=== PATIENT | male | born 1950 | race Caucasian/White ===

== ENCOUNTER → 2020-07-13 13:11 | Outpatient (CLI) | payer OTHER, SELFPAY ==
[2020-07-13 15:34] LABS: COVID19 -Nasal RAPID Negative (Negative)
== END ==
PROVIDERS: Visit Provider Physician Assistant
DX: Z20.828 Contact with and (suspected) exposure to other viral communicable diseases (principal)
CPT/HCPCS: 87635

== ENCOUNTER 2020-07-15 06:01 | Inpatient (IN) | payer OTHER, SELFPAY ==
[2020-07-08 14:00] VITALS: BMI 44.8
[2020-07-15] VITALS (14 sets, daily range): BP systolic 99–158; BP diastolic 7–76; PULSE 62–87; RESP 9–18; TEMP 35.9–36.9; O2SAT 93–98; BMI 43.4
--- NOTE | 2020-07-15 07:41 | DI.RAD.S_ITS ---
PROCEDURE: XR SHOULDER LT 1V INDICATIONS: post op total shoulder TECHNIQUE: Single frontal view of the shoulder were acquired. COMPARISON: None. FINDINGS: Bones: No fractures or dislocations. No suspicious bony lesions. Visualized ribs appear intact. Soft tissues: No suspicious soft tissue calcifications. IMPRESSION: Normal alignment after left proximal humeral arthroplasty. Dictated by: Ignacio Escobar M.D. on 07/15/2020 at 11:13 Approved by: Ignacio Escobar M.D. on 07/15/2020 at 11:13
--- NOTE | 2020-07-15 07:42 | PM.PREOP ---
Pre-operative Note COVID-19 COVID-19 status: Negative Result date/Date tested (Pos, Neg/Pending): 07/13/20 Interval Note History & Physical reviewed/Exam performed by Physician: Yes Changes to H&P: No
[2020-07-15] MEDS: LACTATED RINGERS 1,000 ML 42 ML IV ×2 (07:43→09:57)
[2020-07-15] MEDS: ACETAMINOPHEN 325 MG TABLET 975 MG PO (07:44)
--- NOTE | 2020-07-15 08:03 | SUR.PREOP ---
Orders unable to be activated, those needed to know informed. Block start time 0748. Monitoring initiated and maintained throughout procedure. Oxygen and medications given per anesthesiologist instructions. Patient remained stable throughout procedure, no adverse reactions noted. Block end time 08, pt then transported to OR in stable condition.].
[2020-07-15] MEDS: CEFAZOLIN VIAL 3 GM in SODIUM CHLORIDE 0.9% 100 ML IV (08:05)
--- NOTE | 2020-07-15 08:27 | PM.PROC.1 ---
Procedures Date/Time Date of procedure: 07/15/20 Time of procedure: 07:50 General Procedure description: Ultrasound guided interscalene brachial plexus nerve block for post op pain control after left total shoulder arthroplasty by Dr. Merrill. Risk and benefits of procedure discussed with patient. ASA monitoring applied to patient. O2 given via nasal cannula. 1 mg Versed and 50 mcg fentanyl given for procedural sedation. Skin site was prepped with chlorhexidine and allowed to fully dry. Sterile gloves, mask, hat and probe cover were used to maintain sterility. 2% lidocaine and 30ga needle was used to make a small skin wheal at needle insertion site. Under ultrasound guidance, a 21ga 50mm Pajunk needle was directed into the interscalene groove (middle/anterior scalenes) near the brachial plexus. Patient reported no parasthesias. After negative aspiration, 20 mL 0.5% ropivicaine and 10mg dexamethasone were injected around brachial plexus. Patient tolerated procedure well.
--- NOTE | 2020-07-15 08:44 | SUR.OPER ---
Beach chair with Schlein shoulder positioner. Lower body on padded OR bed. Head in foam padded head cradle, secured with straps. Non-operative arm secured <90 degrees abduction. Pillow under knees. Safety belt at thigh. Cloth tape over blanket over lower legs.
[2020-07-15] MEDS: BUPIVACAINE 0.5% W/ EPI (PF) 30 ML VIAL INJ (08:54)
[2020-07-15] MEDS: TRANEXAMIC ACID 1,000 MG VIAL 2000 MG INJ ×2 (08:54→11:00)
[2020-07-15] MEDS: THROMBIN (RECOMBINANT) 5,000 UNIT VIAL 5000 UNIT TOP (08:55)
--- NOTE | 2020-07-15 10:49 | SUR.PHASEI ---
Pt arrived, 02 nasal cannula added. Denied pain, tolerated ice ships. report called to MIRA Macias and pt transported up on room air to room 220.
--- NOTE | 2020-07-15 11:01 | PM.OP.1 ---
Operative Date/Time/Diagnoses Date of procedure: 07/15/20 Time of procedure: 11:02 Pre-op diagnosis: Left shoulder osteoarthritis Post-op diagnosis: same Procedure & Clinicians Procedure: Left total shoulder replacement Same procedure as scheduled: Yes Indications: The patient has had progressively worsening left shoulder pain with radiographic changes consistent with arthritis. Non-operative management has failed and the patient has requested total shoulder replacement. The risks, benefits and alternatives to surgery were discussed with the patient prior to proceeding. Risks discussed included, but were not limited to, failure to relieve pain, stiffness, infection, nerve damage, deep venous thrombosis, pulmonary embolism, stroke, coma, heart attack, permanent paralysis and , as well as the potential need for eventual revision of the prosthetic. Surgeon: Roberto Merrill Conveyor Line Battery Charger: Tamy Grimes Click Yes if Unassisted: Yes Anesthesia Type: General, Peripheral nerve block and Local Operative Notes Findings: Significant osteoarthritic change of the left shoulder. Closure Type: primary Specimen(s): none sent Prosthetic devices, grafts, tissues, transplants, or devices: Implants used in this procedure were manufactured by the [employer] and included a stem list total shoulder system with a size 324 mm canal sparing stem with a humeral neck and a 50 mm x 20 mm humeral head and a size 50 all polyethylene E plus pegged glenoid. In addition an [employer] Speed Bridge anchor system was used. Applied: implant(s) Estimated Blood Loss (mL): 100 Blood products transfused: none Procedure in detail: The patient was seen in the pre-operative area, where the patient identified the left shoulder as the operative site and this was marked with my initials. The patient received pre-operative antibiotics, underwent an interscalene block, and was taken to the operating room and placed on the operative table in the supine position. After satisfactory anesthesia, a full ?time out? was performed. The patient was repositioned in the ?beach chair? position using a dedicated positioner. All pressure points were well padded, and the knees were slightly bent to prevent tension on the sciatic nerves. The left arm was prepared from the fingers to the base of the neck with ChloroPrep in the usual fashion and draped through sterile drapes. An approximately 15 cm incision was created, starting at the clavicle above the coracoid process and extended towards the deltoid insertion. The deltopectoral interval was used to access the shoulder. The cephalic vein was taken medially. A self retaining retractor was placed. The upper centimeter of the pectoralis major tendon was released. The ?three sisters? were identified and cauterized. The axillary nerve was palpated and protected throughout the case. The biceps was released from its groove and tenodesed over the top of the pectoralis major tendon. The subscapularis was released from the lesser tuberosity with a subscapularis peel and tagged for later repair. The shoulder was dislocated and a cutting guide was used for the proximal humeral osteotomy in 30 degrees of retroversion. A humeral head guide was used to place the guide pin in the center of the proximal humerus after removal of the osteophytes. The cannulated calcar planer was used followed by the neck Reamer and the central cylindrical Reamer. It appeared that a size 3 would fit and this was used to score the proximal humerus and then a size 2 broach was used and left in place. A proximal humeral protector was applied. We then removed the self-retaining retractor and placed retractors to access the glenoid. The subscapularis was released with a ?360 degree release? with care being taken to protect the axillary nerve with the inferior portion of this procedure. The remnant of labrum and biceps stump were removed. The appropriate size reamer was chosen with the glenoid sizer, and the guide pin placed. The glenoid was appropriately reamed. The guide for the peripheral holes was used and the center hole enlarged. The trial glenoid was placed with good stability. We then cemented the final implant into place after irrigating the peg holes and drying them with thrombin-soaked Gelfoam. We returned our attention to the humerus, a trial humeral head was applied and a trial reduction performed. Stability was checked with 50% posterior translation with spontaneous reduction, 45? external rotation at the side with the subscapularis in the repaired position and internal rotation to 70?. This was felt to be satisfactory and the appropriate implants were opened. The canal sparing stem was impacted into the humerus. The humeral head was applied when the stem was still slightly proud and impacted to both seat the head and fully seat the stem. The joint was relocated one final time. The joint was irrigated and the subscapularis repaired using the speed bridge system with 2 anchors along the humeral neck and 2 in the bicipital groove. The top of the subscapularis was closed to the leading edge of the supraspinatus with a figure of 8 #2 TiCron to close the rotator interval. A deep drain was placed and brought out supero-laterally. The deltopectoral interval was closed with interrupted 0 Vicryl. The subcutaneous layer was closed with 3-0 Vicryl, and the skin with a running 3-0 V-Lock suture and Dermabond. An Aquacel Ag dressing was applied, the patient?s arm was placed in a sling, and the patient was taken to recovery having tolerated the procedure well. Complications: none Post-operative Condition: stable Disposition: PACU Plan for aftercare: The patient will be maintained on a standard total shoulder replacement protocol with passive range of motion limited to 90 degrees forward flexion, 0 degrees external rotation at the side, 0 degrees abduction and internal rotation to the body. The patient will receive aspirin and sequential compression devices for DVT prophylaxis. The patient will be discharged home when safe for the home environment, likely tomorrow.
--- NOTE | 2020-07-15 11:03 | SUR.PHASEI ---
Pt transported up to room on room air. Pt stayed on room air till RN could get green plastic piece for 02 set up. Pt left in stable condition.
[2020-07-15] MEDS: LACTATED RINGERS 1,000 ML 100 ML IV ×2 (11:16→21:37)
--- NOTE | 2020-07-15 14:00 | PT.IIE ---
Current Diagnoses Primary osteoarthritis, left shoulder (07/15/20) Surgery Performed Operation Date: 07/15/20 07:45 Actual Procedures p Total Shoulder Arthroplasty(Left) - Roberto Merrill MD Surgical History (Last Updated 07/08/20 @ 14:15 by Lorenza Dubois, RN) Hx of arthroscopy of left knee Medical History (Last Updated 07/08/20 @ 14:15 by Lorenza Dubois, RN) Edema Familial tremor HTN (hypertension) Kidney stones Neuropathy MICHAEL on CPAP Osteoarthritis Pre-diabetes Spinal stenosis Vitreous detachment of left eye Physical Therapy Inpatient Evaluation/Re-Eval M1 PT/OT-IP Prior Functional Status Start: 07/15/20 11:26 Freq: NEEDED Status: Active Protocol: Document 07/15/20 13:56 AW (Rec: 07/15/20 17:52 AW [id number]) Medical Review Prior Functional Status Medical History Reviewed Yes Communication Pt is an effective verbal communicator. Mobility and Gait Independent without AD and without meaningful limit. Pt did fall one year ago, injuring his left shoulder. He reports one additional fall on ice in the past year. Activities of Daily Living and IADL's IND Social History Household Members spouse,family Living Arrangements House Number of Floors (Floors) Two Floors Number of Stairs To Enter/Railing? 1 step up into the house from the garage. entry level electrician has kitchen, living room, dining room. Pt climbs 13 steps with right rail ascending to bedroom level. 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 He has taken six weeks off after surgery. He lives with his , Margarita, who will be home and available to assist at discharge. Pt states his son, Valeriy, also lives at home with mental disabilities . M2 PT-IP Current Condition Start: 07/15/20 11:26 Freq: NEEDED Status: Active Protocol: Document 07/15/20 13:56 AW (Rec: 07/15/20 17:52 AW [id number]) Physical Therapy Current Condition Current Condition Evaluation Date 07/15/20 Treatment Diagnosis L TSA; decreased independence with ADL's Onset Date 07/15/20 Precautions Shoulder Precautions Sling,PROM,Internal Rotation to Body,No External Rotation, No Abduction,Forward Flexion to 90 degrees,Pendulums Brace soft sling LUE M3 PT-IP Subjective Start: 07/15/20 11:26 Freq: NEEDED Status: Active Protocol: Document 07/15/20 13:56 AW (Rec: 07/15/20 17:52 AW [id number]) Subjective Physical Therapy Visit Type Type Initial Evaluation Visit Start Time 13:27 Visit Stop Time 13:56 Total Visit Minutes 29 Number of PARCEL CONTRACTOR Visits 0 Physical Therapy Visit Comments Patient Comments Pt is willing to participate with PT Patient Goals Return home tomorrow Therapy Pain Assessment Pain When Pain Assessed During Mobility Pain Present Pain Present Denied Pain M4 PT-IP Mobility and Gait Start: 07/15/20 11:26 Freq: NEEDED Status: Active Protocol: Document 07/15/20 13:56 AW (Rec: 07/15/20 17:52 AW [id number]) PT-Bed Mobility Assessment Supine to Sit Supine to Sit Minimal Assistance,1 Person Assistance Scooting Scooting to Edge of Bed Contact Guard Assistance PT-Transfer Assessment Sit to and From Stand Sit to and from Stand Contact Guard Assistance Equipment Transfer Assistive Device Gait Belt Orthotic/Prosthetic Devices or Brace: Yes Transfers Transfer Destination Chair,Toilet Transfer Technique Stand Step Pivot Transfer Ability Level of Assist Contact Guard Assistance Comments Mobility Comments Pt was reclined in the bed as PT arrived. He denied pain. BP was 130/64 HR 77 Spo2 97% on room air. With HOB flat, pt required min 1 PA to complete supine to sit and CGA for scooting to EOB. He stood from the bed in lowest position CGA and ambulated to the sink CGA. Pt was instructed in proper sling fitting using the mirror for visual feedback. Pt understood and was able to teach back regarding sling adjustments. Pt then requested to use the toilet. He ambulated to the toilet CGA and stood to void SBA. He ambulated to the sink for handwashing and then transferred to the chair CGA and cues to reach back with right hand for safe transfer. Pt was positioned on the chair with call light and all needs in reach. Gait Assessment Gait Gait Assistance Required: Contact Guard Assist Distance (Feet) 15 Assistive Devices Assistive Device Gait Belt Orthotic/Prosthetic Devices or Brace: Yes Gait Deviations General Gait Pattern Decreased Stride Length, Decreased Feet Clearance, Flexed Trunk,Wide Based Gait Factors Limiting Gait Function Factors Limiting Gait Function Decreased Activity Tolerance, Decreased Sensation,Decreased Strength,Limited Range of Motion Comments Gait Comments See mobility comments for details. Stair Climbing Assessment Comments Stair Climbing Comments Not assessed. PT-Balance Assessment Sitting Balance and Reactions Static Sitting Balance Ability Good Dynamic Sitting Balance Ability Good Standing Balance and Reactions Static Standing Balance Ability Good Dynamic Standing Balance Ability Good Device Used no AD M5 PT-IP Objective Assessments Start: 07/15/20 11:26 Freq: NEEDED Status: Active Protocol: Document 07/15/20 13:56 AW (Rec: 07/15/20 17:52 AW [id number]) Orientation Orientation/Cognition Level of Alertness Alert Orientation Name,Day of Week,Place, Situation Language Function Ability No Deficits Noted Safety Awareness Understands Safety Issues Memory Description No Deficits Noted Gross Range of Motion Upper Extremity ROM Assessment Left Impaired Strength Upper Extremity Strength Assessment Left Impaired Comments Strength Comments RUE grossly 4+/5 Sensation Assessment Sensation Gross Sensation Left UE Impaired Light Touch Impaired Sensation Description Numbness M6 PT-IP Treatment Start: 07/15/20 11:26 Freq: NEEDED Status: Active Protocol: Document 07/15/20 13:56 AW (Rec: 07/15/20 17:52 AW [id number]) Physical Therapy Treatment Education Education Provided Precautions,Post-Op Packet, Safety Brace Education [place],Patient Other Treatments Other Treatment Performed Provided education on ADL management during recovery and left pt with hand out describing same. M7 PT-IP Assessment and Plan Start: 07/15/20 11:26 Freq: NEEDED Status: Active Protocol: Document 07/15/20 13:56 AW (Rec: 07/15/20 17:52 [id number]) PT Summary Assessment and Plan Potential Rehabilitation Potential Good Status of Condition at Evaluation Evolving Summary Impairments Pain,ROM,Strength,Balance, Sensation,Bed Mobility, Transfers,Gait,Activity Tolerance Assessment Summary Christian is a 69 yo man seen for PT evaluation on POD0 following L TSA. He is left handed and independent in all regards at baseline. On evaluation, pt required min assist for bed mobility and CGA for transfers and ambulation without AD. He will need to clear stairs prior to discharge but PT anticipates he will be safe to go home with assist once medically cleared. Goals Bed Mobility Goal Standby Assistance Transfer Goal Standby Assistance Gait Goal Standby Assistance Gait Distance 200 Other Goals - up/down 13 steps wtih R rail ascending SBA Days to Meet Goals 3 Frequency of Treatment Frequency Of Treatment Twice a Day Treatment Plan Physical Therapy Treatment Plan Bed Mobility Training,Transfer Training,Gait Training, Therapeutic Exercise,Balance Retraining,Post Op Education, Discharge Planning,Hot or Cold Pack Other Recommendations and Next Treatment review precautions and PROM/ Focus pendulums; assess safety on stairs. Recommendations To Nursing Amount of Assist Needed Standby Assistance,1 Person Assist Discharge Recommendations PT Discharge Recommendations Home with Assistance, Outpatient PT Transportation Needs at Discharge Private Vehicle
--- NOTE | 2020-07-15 14:11 | PC.ADMIT ---
[id number] Admission Note: Safe hand off from [facility] PACU. Patient arrived on the floor at 1100. VSS, patient was on 1 liter of O2 at 97% and now is on room air at 93%. Patient has an aquacel bandage on his left shoulder that is CDI. LR@100cc/hr. NO pain, no nausea, tolerated lunch without any issues. Patient was educated about the use of his call light, it is within reach, and the bed is low and locked. Patient has home CPAP available for use. The patient,Kayode Obando,69 y/o, was given written information regarding hospital policies, unit procedures and contact persons. Patient's smoking status: Never smoker. Vital Signs - 8 hr 07/15/20 06:45 07/15/20 10:26 07/15/20 10:30 Temperature 98.4 F 98.4 F Pulse Rate 62 77 77 Respiratory Rate 16 9 L 10 L Blood Pressure 145/72 H 112/58 L 99/7 L Pulse Oximetry 98 94 95 07/15/20 10:34 07/15/20 10:48 07/15/20 11:01 Temperature 97.9 F 96.7 F L Pulse Rate 73 67 68 Respiratory Rate 14 16 15 Blood Pressure 125/66 127/60 126/60 Pulse Oximetry 96 95 93 07/15/20 11:29 07/15/20 12:00 07/15/20 12:22 Temperature 96.7 F L 96.8 F L Pulse Rate 65 67 Respiratory Rate 15 16 Blood Pressure 158/67 H 142/63 H Pulse Oximetry 96 96 96 07/15/20 13:07 Temperature 97.2 F L Pulse Rate 70 Respiratory Rate 16 Blood Pressure 130/61 Pulse Oximetry 97
[2020-07-15] MEDS: ACETAMINOPHEN 325 MG TABLET 650 MG PO ×2 (16:42→21:13)
[2020-07-15] MEDS: MELOXICAM 7.5 MG TABLET 15 MG PO (21:13)
[2020-07-15] MEDS: ASPIRIN EC 81 MG TABLET PO (21:13)
[2020-07-15] MEDS: LOSARTAN 50 MG TABLET PO (21:13)
[2020-07-15] MEDS: DOCUSATE 100 MG CAPSULE PO (21:13)
[2020-07-16] MEDS: OXYCODONE IR 5 MG TABLET PO ×2 (03:27→08:11)
[2020-07-16 05:08] LABS: Hematocrit 36.7 % (41-53); Hemoglobin 12.1 g/dL (13.5-17.5)
[2020-07-16 05:20] VITALS: BP 125/67; PULSE 76; RESP 16; TEMP 36.3; O2SAT 96
[2020-07-16] MEDS: SODIUM CHLORIDE 0.9% FLUSH 10 ML IV (06:10)
--- NOTE | 2020-07-16 07:38 | PM.DS.1 ---
History of Present Illness History of Present Illness Date Patient Seen: 07/16/20 Time Patient Seen: 07:38 Chief complaint: Left Total Shoulder Arthroplasty Narrative: The history and physical is contained in the chart in a previously completed note, please refer to that note for this information. Discharge Providers Provider Date of admission: 07/15/20 06:01 Discharge Date: 07/16/20 Primary care physician: Kaleb Rodriguez MD Consults: 07/15/20 11:01 Consult to Discharge Planning Routine Comment: Consult to Physical Therapy Evaluate & Treat Comment: Physician Instructions: Pendulums. Can do 90 FF, 0 ER, 0 ABD, IR to body Consult to Respiratory Therapy Evaluate & Treat Comment: Physician Instructions: Evaluate and treat Discharge provider: Roberto Merrill MD Summary Hospital Course Discharge Diagnosis: 1. Left shoulder osteoarthritis 2. Post hemorrhagic anemia Hospital Course: The patient was admitted to the hospital and taken directly to the operating room on July 15, 2020. He underwent a left total shoulder replacement without difficulty. On postoperative day 1 he had a mild post hemorrhagic anemia. This was not severe enough to require treatment. He was comfortable after the block had worn off and was independent ambulating to the bathroom. Status at Discharge Cognitive/behavioral status at discharge: oriented Functional status at discharge: independent ambulation Overall status at discharge: patient is progressing back to baseline Time Spent with Patient Time spent: Less than 30 minutes Exam Vital Signs (past 8 hours): - 07/16/20 05:20 Temperature 97.3 F L Pulse Rate 76 Respiratory Rate 16 Blood Pressure 125/67 Pulse Oximetry 96 Oxygen Delivery Method Nasal Cannula Oxygen Flow Rate 2 Narrative Exam Narrative: Left shoulder dressing is intact with no drainage on the bandage. Light touch is intact in the radial, ulnar, median, muscular cutaneous and axillary nerve distribution. He can extend his thumb, abduct his thumb, abduct his fingers and can fire his biceps and deltoid. Objective Labs Result Diagrams: 07/16/20 04:47 Labs: Laboratory Results - last 24 hr 07/16/20 04:47 Hgb 12.1 L Hct 36.7 L PFSH Medical History (Updated 07/08/20 @ 14:15 by Lorenza Dubois RN) Edema Familial tremor HTN (hypertension) Kidney stones Neuropathy MICHAEL on CPAP Osteoarthritis Pre-diabetes Spinal stenosis Vitreous detachment of left eye Surgical History (Updated 07/08/20 @ 14:15 by Lorenza Dubois RN) Hx of arthroscopy of left knee Social History household members: spouse and family Smoking Status: Never smoker alcohol intake: never Discharge Assessment & Plan Assessment and Plan Assessment: Stable postoperative day 1 status post left total shoulder replacement. He has a mild, asymptomatic post hemorrhagic anemia. He is independent ambulating. Plan of Treatment: Discharged home today with follow-up at my office in 10-14 days. Prescriptions for oxycodone and Vistaril have been provided. He has been instructed to use Mobic and Tylenol for pain control as well. He has been instructed in the use of low-dose aspirin for DVT prophylaxis. Discharge Plan Discharge Plan Patient Disposition: Home Discharge orders & Medications Prescriptions: New acetaminophen 325 mg Tablet 650 mg PO TID 30 Days Qty: 180 RF: 0 aspirin 81 mg Tablet,Delayed Release (Dr/Ec) 81 mg PO BID 42 Days Qty: 84 RF: 0 oxycodone 5 mg Tablet 5 mg PO Q4H PRN (Reason: Pain, Moderate (4-6)) Qty: 40 RF: 0 hydroxyzine pamoate 25 mg Capsule 25 mg PO Q6HR PRN (Reason: Nausea) Qty: 30 RF: 0 Continued losartan 50 mg Tablet 50 mg PO BEDTIME RF: 0 propranolol 80 mg Tablet 80 mg PO QAM RF: 0 meloxicam 15 mg Tablet 15 mg PO BEDTIME RF: 0 hydrochlorothiazide 25 mg Tablet 25 mg PO DAILY RF: 0 multivitamin Capsule 1 cap PO DAILY RF: 0 Follow up/Referrals: Kaleb Rodriguez MD [Primary Care Provider] - Roberto Merrill MD [Physician] - 2 Weeks Discharge Health Status Multidrug resistant organism: No MDRO Diet/Activity/Treatments Diet: Diet as Tolerated and Regular Activity: You may use your left arm in front of your body below shoulder level. Lift no more than 1-2 lb with your left arm. Cold/Heat Therapy: Apply ice to the left shoulder for 15 minutes every hour as needed for pain control. Skin/Wound/Dressing Care Report to your healthcare provider any signs of infection, such as:: chills, fever, night sweats, increased pain, unusual drainage and unusual redness Dressing: Leave the dressing in place until your postoperative follow-up. You may shower with the dressing in place. If the central strip of the dressing becomes saturated with either water or blood, please call the office to have it evaluated. Visit Report/Discharge Packet Instructions: DI for Prescription Opioid Use, DI for Shoulder Replacement Stand Alone Forms: Surgery Discharge Discharge Data Primary Care Provider: Kaleb Rodriguez VTE Deep Vein Thrombosis/Pulmonary Embolism Present on Admission: No
[2020-07-16] MEDS: ACETAMINOPHEN 325 MG TABLET 650 MG PO (08:10)
[2020-07-16] MEDS: DOCUSATE 100 MG CAPSULE PO (08:10)
[2020-07-16] MEDS: ASPIRIN EC 81 MG TABLET PO (08:11)
[2020-07-16] MEDS: hydroCHLOROthiazide 25 MG TABLET PO (08:11)
[2020-07-16] MEDS: PROPRANOLOL 40 MG TABLET 80 MG PO (08:11)
[2020-07-16] MEDS: MULTIVITAMIN 1 TABLET 1 TAB PO (08:11)
--- NOTE | 2020-07-16 09:11 | PT.IPTN ---
Current Diagnoses Primary osteoarthritis, left shoulder (07/15/20) Surgery Performed Operation Date: 07/15/20 07:45 Actual Procedures p Total Shoulder Arthroplasty(Left) - Roberto Merrill MD Physical Therapy Treatment Note M2 PT-IP Current Condition Start: 07/15/20 11:26 Freq: NEEDED Status: Discharge Protocol: Document 07/15/20 13:56 AW (Rec: 07/15/20 17:52 AW [id number]) Physical Therapy Current Condition Current Condition Evaluation Date 07/15/20 Treatment Diagnosis L TSA; decreased independence with ADL's Onset Date 07/15/20 Precautions Shoulder Precautions Sling,PROM,Internal Rotation to Body,No External Rotation, No Abduction,Forward Flexion to 90 degrees,Pendulums Brace soft sling LUE M3 PT-IP Subjective Start: 07/15/20 11:26 Freq: NEEDED Status: Discharge Protocol: Document 07/16/20 08:52 CLB (Rec: 07/16/20 10:49 CLB [email or web address]) Subjective Physical Therapy Visit Type Type Treatment Note Visit Start Time 08:52 Visit Stop Time 09:11 Total Visit Minutes 19 Number of WELD ENGINEER Visits 1 Physical Therapy Visit Comments Patient Comments Pt is willing to participate with PT Therapy Pain Assessment Pain When Pain Assessed During Mobility Pain Present Pain Present Pain Reported Location l shoulder Intensity 2 Scale Used Numeric (0 - 10) M4 PT-IP Mobility and Gait Start: 07/15/20 11:26 Freq: NEEDED Status: Discharge Protocol: Document 07/16/20 08:52 CLB (Rec: 07/16/20 10:49 CLB [email or web address]) PT-Bed Mobility Assessment Supine to Sit Supine to Sit Standby Assistance Scooting Scooting to Edge of Bed Standby Assistance PT-Transfer Assessment Sit to and From Stand Sit to and from Stand Contact Guard Assistance Equipment Transfer Assistive Device Gait Belt Orthotic/Prosthetic Devices or Brace: Yes Transfers Transfer Destination Chair Transfer Technique Stand Step Pivot Transfer Ability Level of Assist Standby Assistance Comments Mobility Comments Pt required SBA for bed mobility, once on EOB pt required assist donning shoes, pt then stood SBA, pt ambulated in fine ~100ft w/GB/ SBA to stairwell. Pt climbed 12 steps with rail SBA. Pt then ambulated ~200ft more SBA . Pt ambulates with step thru gait pattern steadily w/o LOB. Pt returned to room sitting in chair SBA. Pt removed sling performing elbow, wrist and finger flx/ext. Pt then stood SBA and with right hand on foot board perform pendulum. Pt then donned sling with assist getting strap behind his head then pt was able to secure velcro strap on his own . Left pt in chair with all needs within reach. Informed RN of pt mobility. Gait Assessment Gait Gait Assistance Required: Standby Assistance Distance (Feet) 300 Assistive Devices Assistive Device Gait Belt Orthotic/Prosthetic Devices or Brace: Yes Gait Deviations General Gait Pattern Decreased Stride Length, Decreased Feet Clearance,Wide Based Gait Factors Limiting Gait Function Factors Limiting Gait Function Decreased Activity Tolerance, Decreased Sensation,Decreased Strength,Limited Range of Motion Comments Gait Comments See mobility comments for details. Stair Climbing Assessment Evaluation Level of Assist On Stairs Standby Assistance Devices Stair Climbing Assistive Devices Right Railing Technique/Endurance Stair Climbing Direction Ascend and Descend Stair Climbing Technique Step Over Step,Step to Step Number of Steps Climbed 12 Stair Climbing Set # Repetitions (reps) 1 Comments Stair Climbing Comments Pt able to climb stairs SBA using right rail with step to down and step over up stairs. M5 PT-IP Objective Assessments Start: 07/15/20 11:26 Freq: NEEDED Status: Discharge Protocol: Document 07/15/20 13:56 AW (Rec: 07/15/20 17:52 AW [id number]) Orientation Orientation/Cognition Level of Alertness Alert Orientation Name,Day of Week,Place, Situation Language Function Ability No Deficits Noted Safety Awareness Understands Safety Issues Memory Description No Deficits Noted Gross Range of Motion Upper Extremity ROM Assessment Left Impaired Strength Upper Extremity Strength Assessment Left Impaired Comments Strength Comments RUE grossly 4+/5 Sensation Assessment Sensation Gross Sensation Left UE Impaired Light Touch Impaired Sensation Description Numbness M6 PT-IP Treatment Start: 07/15/20 11:26 Freq: NEEDED Status: Discharge Protocol: Document 07/16/20 08:52 CLB (Rec: 07/16/20 10:49 CLB [email or web address]) Physical Therapy Treatment Exercises Exercises Shoulder Pendulums,Elbow Flexion/Extension,Wrist ROM, Hand ROM Education Education Provided Precautions,Post-Op Packet, Safety Brace Education Donning,[place],Patient M7 PT-IP Assessment and Plan Start: 07/15/20 11:26 Freq: NEEDED Status: Discharge Protocol: Document 07/16/20 08:52 CLB (Rec: 07/16/20 10:49 CLB [email or web address]) PT Summary Assessment and Plan Potential Rehabilitation Potential Good Status of Condition at Evaluation Evolving Summary Impairments Pain,ROM,Strength,Balance, Sensation,Bed Mobility, Transfers,Gait,Activity Tolerance Progress Towards Goals Safe For Discharge Assessment Summary Pt is SBA for all mobility, pt requires assist with donning shoes and minimal assist with donning sling. Pt required SBA for gait ~300ft and climbing 12 stairs. Pt seems able to d/ c home with assist from his Margarita. Goals Bed Mobility Goal Standby Assistance Transfer Goal Standby Assistance Gait Goal Standby Assistance Gait Distance 200 Other Goals - up/down 13 steps wtih R rail ascending SBA Days to Meet Goals 3 Frequency of Treatment Frequency Of Treatment Twice a Day Treatment Plan Physical Therapy Treatment Plan Bed Mobility Training,Transfer Training,Gait Training, Therapeutic Exercise,Balance Retraining,Post Op Education, Discharge Planning,Hot or Cold Pack Recommendations To Nursing Amount of Assist Needed Standby Assistance,1 Person Assist Discharge Recommendations PT Discharge Recommendations Home with Assistance, Outpatient PT Transportation Needs at Discharge Private Vehicle
--- NOTE | 2020-07-16 14:03 | CM.DPC ---
DCP/Assessment: Reviewed chart. Patient is a 69yr old male admitted [facility] for elective left TSA performed on 07-15-20. PCP listed is Kaleb Rodriguez. Primary payor is 1)[employer]. Met with patient explained CM/SW role. Patient report that he is discharging home today without any d/c planning needs. P: Home LAYLA Blanc Discharge Planning/Care Management Advanced directive, confirm from FAMILY Start: 07/15/20 11:10 Freq: Q24H Status: Discharge Protocol: Document 07/15/20 11:10 KLP (Rec: 07/15/20 11:14 KLP [id number]) Advance Directive, confirm on record Time 11:14 Person contacted patient Copy received No CM Discharge Assessment Start: 07/16/20 13:59 Freq: Status: Discharge Protocol: Document 07/16/20 13:59 KJS (Rec: 07/16/20 14:03 KJS [id number]) Discharge Planning Assessment Assigned Welder Fitter Apprentice LAYLA Blanc Contact Information Margarita Obando (spouse) # Advance Directives? Yes Advance Directives on File No History Provided By Patient Prior Living Arrangements House Household Members spouse,family Type of transporation used prior to Drives own vehicle admit Independent with ADL's Yes Is patient alert and oriented? Yes Caregiver for Another No Barriers to Discharge No Discharge Plan Home Transportation Arrangement Spouse to provide transport. Referrals Initiated None needed Whiteboard Updated in Patient Room with Yes name and ext. # of Welder Fitter Apprentice Review Status In Process Next Review Type Continued Stay Review Pre-Anesthesia Assessment Start: 07/08/20 14:00 Freq: Status: Complete Protocol: Document 07/08/20 14:00 CAB (Rec: 07/08/20 14:36 CAB [id number]) Pre-Anesthesia Assessment Preferred Name Christian Patient Information Reviewed Via Phone Assessment Assessment Completed With Patient Diagnostic Results BMP/CMP,CBC,EKG Comment Outside labs/EKG scanned, COVID screen @ 07/13/20 Primary Care Provider Kaleb Rodriguez Seen Specialist in Last 12 Months Yes Specialist Seen Opthamologist/Reliner, Other Comment Neuro Primary Language Azeri Twitchell Operator Required No Height 170.18 cm Weight 129.727 kg Body Mass Index (BMI) 44.8 Hearing Ability Normal Visual Assist Glasses Dentition Type Teeth, Natural Present Barriers to Learning None Hx Anesthesia Reactions No Hx Family Anesthesia Reaction No Hx Malignant Hyperthermia No Hx Blood Transfusions No Anesthesia Review Requested No alcohol intake never Smoking Status Never smoker Substance Use Type does not use Pain Present Pain Reported Musculoskeletal Symptoms Joint Pain,Limited Range of Motion,Tremors History of Falling (Recent or History of No ) Patient is completely paralyzed or No completely immobile Mental Status Oriented to own ability Is patient on oxygen? No Does patient have RODRÍGUEZ/SOB No Hx Sleep Apnea Yes CPAP/BIPAP use prescribed and used routinely Will Bring CPAP/BIPAP DOS Yes Currently Taking a Beta Rere Yes: Propranolol for bilat hand tremors Can You Climb a Flight of Stairs Without Yes SOB Hx Chest Pain No Hx SOB No Hx Syncope or Dizziness No Anti-Coagulant Therapy No Has a Chemical Treatment Operator No Cardiac Testing No Hx Pacemaker/ICD No Pacemaker Rep Required? No Cardiac Clearance Received Not Applicable Diet Type At Home Regular dysphagia No Urinary Catheter Present No Hx Urinary Self Catheterization No Diabetes No: Pre-diabetic Hx Drug Resistant Organism No Presence of External or Internal Medical Yes: CPAP Devices Have you had any close contact with Yes: Exposure in March someone diagnosed with COVID-19? with co-worker, pt tested negative Marital Status Lives With spouse,family Prior Living Arrangements House Number of Floors (Floors) Two Floors Support System Child/Children,Spouse Does the Patient Have Assistance After Yes Surgery Patient Discharge Plan Description Return Home Comment Pt advised overnight length of stay per surgeon Feels Safe in Current Environment Yes Been Physically Hurt or Threatened By a No Person in Current Environment Do you have thoughts of harming yourself None or others? Are you currently considering suicide? No Do you have a plan to hurt yourself or No Plan others? Do You Have Any Spiritual Beliefs That No May Affect Your HC Choices? Do You Have Any Cultural Practices That No May Affect Your HC Choices? Comment Rastafari Who Can We Speak to About Patient's Care Family, friends Identifying Code for Release of Patient Declines to issue Information Health Care Proxy/Next of Kin Margarita Chavez () Health Care Proxy Emergency Contact Name Margarita Chavez () Emergency Contact Advance Directives? Yes Advance Directives on File No Requested Patient Bring Advanced Yes Directives DOS Power of Actuary Manager Yes Power of Actuary Manager Name Margarita Chavez () Power of Actuary Manager PAC Instructions Durable medical equipment, Medications to take/avoid, Nasal antibiotic,No ETOH/ petroleum product on skin DOS, NPO,Pre-surgical wash,Sensory aids,Sturdy shoes/comfortable clothes,Do not bring valuables and remove jewelry
== END 2020-07-16 10:10 | disposition home or self-care (01) | DRG 483 ==
PROVIDERS: Admitting Provider Orthopaedic Surgery; PCP Family Medicine; Referring Provider Orthopaedic Surgery; Visit Provider Orthopaedic Surgery
PROC: 0RRK0JZ Replacement of Left Shoulder Joint with Synthetic Substitute, Open Approach (ICD-10-PCS; CPT 23472; principal; 2020-07-15 07:45)
DX: M19.012 Primary osteoarthritis, left shoulder (principal); Z68.41 Body mass index [BMI] 40.0-44.9, adult; G47.33 Obstructive sleep apnea (adult) (pediatric); E66.9 Obesity, unspecified; I10 Essential (primary) hypertension; Z20.828 Contact with and (suspected) exposure to other viral communicable diseases
CPT/HCPCS: 36415; 64450; 73020; 85014; 85018; 87635; 94762; 97116; 97161; C1776; C9803; J0690; J1100; J2250; J2405; J2704; J3010

== ENCOUNTER → 2022-08-10 12:45 | Outpatient (CLI) | payer OTHER, SELFPAY ==
[2020-07-15 11:06] VITALS: BMI 43.4
[2022-08-10 13:56] LABS: COVID19 -Nasal RAPID Negative (Negative)
== END ==
PROVIDERS: PCP Family Medicine; Referring Provider Orthopaedic Surgery; Visit Provider Orthopaedic Surgery
DX: Z20.822 Contact with and (suspected) exposure to COVID-19 (principal)
CPT/HCPCS: 87635; C9803

== ENCOUNTER 2022-08-12 07:57 | Inpatient (IN) | payer OTHER, SELFPAY ==
[2020-07-15 11:06] VITALS: BMI 43.4
[2022-07-31 10:00] VITALS: BMI 46.5
[2022-08-12] VITALS (21 sets, daily range): BP systolic 110–166; BP diastolic 44–80; PULSE 70–100; RESP 10–26; TEMP 35.7–36.9; O2SAT 88–97; BMI 46.2
--- NOTE | 2022-08-12 07:29 | DI.RAD.S_ITS ---
PROCEDURE: XR SHOULDER RT MIN 2V INDICATIONS: Post op total shoulder TECHNIQUE: 1 views of the shoulder were acquired. [facility] SHOULDER 2+ VIEWS RIGHT, 02/03/2022, 15:29. FINDINGS: Bones: Postsurgical changes from right shoulder arthroplasty. Hardware appears intact. AC joint degenerative changes redemonstrated. Soft tissues: Soft tissue gas about the right shoulder consistent with recent postoperative status. IMPRESSION: Postsurgical changes from right shoulder arthroplasty. No definite unexpected findings identified. Dictated by: Mack Malloy M.D. on 08/12/2022 at 13:07 Approved by: Mack Malloy M.D. on 08/12/2022 at 13:16
[2022-08-12] MEDS: LACTATED RINGERS 1,000 ML 42 ML IV (09:00)
[2022-08-12] MEDS: PREGABALIN 75 MG CAPSULE PO (09:14)
[2022-08-12] MEDS: ACETAMINOPHEN 325 MG TABLET 975 MG PO (09:14)
[2022-08-12] MEDS: CELECOXIB 200 MG CAPSULE PO (09:15)
--- NOTE | 2022-08-12 09:25 | PM.PREOP ---
Pre-operative Note COVID-19 COVID-19 status: Negative Result date/Date tested (Pos, Neg/Pending): 08/10/22 Interval Note History & Physical reviewed/Exam performed by Physician: Yes Changes to H&P: No
[2022-08-12] MEDS: CEFAZOLIN VIAL 1 GM in SODIUM CHLORIDE 0.9% 100 ML IV (10:15)
[2022-08-12] MEDS: CEFAZOLIN 2 GM/100 ML PREMIX 100 ML IV (10:15)
--- NOTE | 2022-08-12 10:16 | SUR.PREOP ---
MD Merrill and MD Zurita were informed of patient edema in lower legs and greater edema swelling in left leg. Both observed and noted patient legs at bedside.
--- NOTE | 2022-08-12 10:51 | SUR.OPER ---
Beach chair with Carlita/Ana shoulder positioner. Lower body on padded OR bed. Head in foam padded head cradle, secured with straps. Non-operative arm secured with schlein strap against body over stomach. Pillow under knees. Safety belt at thigh. Cloth tape over blanket over lower legs. Additional cloth tape over torso, under arms to secure.
[2022-08-12] MEDS: TRANEXAMIC ACID 1,000 MG VIAL 1000 MG INJ ×2 (11:06→11:52)
[2022-08-12] MEDS: BUPIVACAINE 0.5% W/ EPI (PF) 30 ML VIAL INJ (11:10)
[2022-08-12] MEDS: THROMBIN (RECOMBINANT) 5,000 UNIT VIAL 5000 UNIT TOP (11:11)
[2022-08-12] MEDS: LACTATED RINGERS 1,000 ML 120 ML IV (11:56)
--- NOTE | 2022-08-12 12:18 | PM.OP.1 ---
Operative Date/Time/Diagnoses Date of procedure: 08/12/22 Time of procedure: 12:18 Pre-op diagnosis: Right shoulder osteoarthritis Post-op diagnosis: same Procedure & Clinicians Procedure: Right total shoulder replacement Same procedure as scheduled: Yes Indications: The patient has had progressively worsening right shoulder pain with radiographic changes consistent with arthritis. Non-operative management has failed and the patient has requested total shoulder replacement. The risks, benefits and alternatives to surgery were discussed with the patient prior to proceeding. Risks discussed included, but were not limited to, failure to relieve pain, stiffness, infection, nerve damage, deep venous thrombosis, pulmonary embolism, stroke, coma, heart attack, permanent paralysis and , as well as the potential need for eventual revision of the prosthetic. Surgeon: Roberto Merrill Building And Construction Manager: Lucas Cisneros Click Yes if Unassisted: No Anesthesia Type: General, Peripheral nerve block and Local Operative Notes Findings: Severe osteoarthritis of the right shoulder. Closure Type: primary Specimen(s): none sent Prosthetic devices, grafts, tissues, transplants, or devices: Prosthetics used in this procedure were manufactured by the [employer] and included a canal sparing size 2 stem, a 50 x 18 mm neutral humeral head and an all polyethylene E+ 50 mm pegged glenoid Applied: implant(s) Estimated Blood Loss (mL): 150 Blood products transfused: none Procedure in detail: The patient was seen in the pre-operative area, where the patient identified the right shoulder as the operative site and this was marked with my initials. The patient received pre-operative antibiotics, underwent an interscalene block, and was taken to the operating room and placed on the operative table in the supine position. After satisfactory anesthesia, a full ?time out? was performed. The patient was repositioned in the ?beach chair? position using a dedicated positioner. All pressure points were well padded, and the knees were slightly bent to prevent tension on the sciatic nerves. The right arm was prepared from the fingers to the base of the neck with ChloroPrep in the usual fashion and draped through sterile drapes. An approximately 15 cm incision was created, starting at the clavicle above the coracoid process and extended towards the deltoid insertion. The deltopectoral interval was used to access the shoulder. The cephalic vein was taken medially. A self retaining retractor was placed. The upper centimeter of the pectoralis major tendon was released. The ?three sisters? were identified and cauterized. The axillary nerve was palpated and protected throughout the case. The biceps was released from its groove and cut. The subscapularis was released from the lesser tuberosity with a subscapularis peel and tagged for later repair. The shoulder was dislocated and a cutting guide was used for the proximal humeral osteotomy in 30 degrees of retroversion. The trial humeral head was used to place the guide pin. The collared Reamer was then used followed by the central Reamer for the body of the broach. A size 2 broach was placed. A proximal humeral protector was then placed. We then removed the self-retaining retractor and placed retractors to access the glenoid. The subscapularis was released with a ?360 degree release? with care being taken to protect the axillary nerve with the inferior portion of this procedure. The remnant of labrum and biceps stump were removed. The appropriate size reamer was chosen with the glenoid sizer, and the guide pin placed. The glenoid was appropriately reamed. The guide for the peripheral holes was used and the center hole enlarged. The trial glenoid was placed with good stability. We then cemented the final implant into place after irrigating the peg holes and drying them with thrombin-soaked Gelfoam. We returned our attention to the humerus, a trial humeral head was applied and a trial reduction performed. Stability was checked with 50% posterior translation with spontaneous reduction, 45? external rotation at the side with the subscapularis in the repaired position and internal rotation to 70? in the ?scarecrow position?. This was felt to be satisfactory and the appropriate implants were opened. Five holes were drilled along the humeral osteotomy and #2 Ethibond sutures placed for eventual subscapularis repair. The humeral prosthetic was partially impacted into the humerus and the sutures threaded through the ring of the prosthetic. The humeral head was applied when the stem was still slightly proud and impacted to both seat the head and fully seat the stem. The joint was relocated one final time. The joint was irrigated and the subscapularis repaired to the previously placed sutures using Darwin-Avelino sutures. The top of the subscapularis was closed to the leading edge of the supraspinatus with a figure of 8 #2 Ethibond to close the rotator interval. The deltopectoral interval was closed with interrupted 0 Vicryl. The subcutaneous layer was closed with 3-0 Vicryl, and the skin with a running 3-0 V-Lock suture and Dermabond. An Aquacel Ag dressing was applied, the patient?s arm was placed in a sling, and the patient was taken to recovery having tolerated the procedure well. The services of a skilled electrical assistant were required during this case for positioning, retraction to protect vital structures and exposure. Without the services of Mr. Cisneros the procedure could not have been performed safely and expediently. Complications: none Post-operative Condition: stable Disposition: PACU Plan for aftercare: The patient will be allowed to use his arm in front of his body below shoulder level to lift 1-2 lb. He will be advanced with range of motion and strengthening per physical therapy. He will likely be hospitalized overnight.
--- NOTE | 2022-08-12 13:21 | SUR.PHASEI ---
Report called to Stella Stanley
--- NOTE | 2022-08-12 13:38 | SUR.PHASEI ---
Patient transferred to the floor with his belongings bag, cell phone, CPAP and glasses. Report given to MIRA Mendoza. VS stable. Right shoulder dressing CDI, sling in place. IV patent.
--- NOTE | 2022-08-12 13:41 | PC.NURSE ---
Day shift: patient arrived to floor at 1330. 2L NC 95%. BP & P WDP. CMS intact in right hand and shoulder. A&Ox4, oriented to room and call light. Dressing is CDI.
[2022-08-12] MEDS: IBUPROFEN 400 MG TABLET PO ×3 (14:04→20:33)
[2022-08-12] MEDS: LACTATED RINGERS 1,000 ML 100 ML IV ×2 (14:05→17:43)
--- NOTE | 2022-08-12 15:10 | PT.IIE ---
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) Hx of arthroscopy of left knee Medical History (Last Updated 07/08/20 @ 14:15 by Lorenza Dubois RN) Edema Familial tremor HTN (hypertension) Kidney stones Neuropathy MICHAEL on CPAP Osteoarthritis Pre-diabetes Spinal stenosis Vitreous detachment of left eye Physical Therapy Inpatient Evaluation/Re-Eval M1 PT/OT-IP Prior Functional Status Start: 08/12/22 16:26 Freq: NEEDED Status: Active Protocol: Document 08/12/22 15:10 AB (Rec: 08/12/22 16:42 AB [id number]) Medical Review Prior Functional Status Medical History Reviewed Yes Communication able to make needs known Mobility and Gait pt stated that he is independent with all mobilities and ambulation without AD; spouse stated that pt has B feet neuropathy and usually ambulates with a waddling gait Social History Household Members spouse,children Living Arrangements House Number of Floors (Floors) One Floor Number of Stairs To Enter/Railing? 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 pt plans to sleep in his recliner M2 PT-IP Current Condition Start: 08/12/22 16:26 Freq: NEEDED Status: Active Protocol: Document 08/12/22 15:10 AB (Rec: 08/12/22 16:42 AB [id number]) Physical Therapy Current Condition Current Condition Evaluation Date 08/12/22 Treatment Diagnosis s/p R TSA; difficulty in walking Onset Date 08/12/22 M3 PT-IP Subjective Start: 08/12/22 16:26 Freq: NEEDED Status: Active Protocol: Document 08/12/22 15:10 AB (Rec: 08/12/22 16:42 AB [email or web address]) Subjective Physical Therapy Visit Type Type Initial Evaluation Visit Start Time 15:10 Visit Stop Time 16:08 Total Visit Minutes 58 Number of AIRPORT TRAFFIC CONTROLLER Visits 0 Physical Therapy Visit Comments Patient Comments agreeable to do PT Therapy Pain Assessment Pain Present Pain Present Denied Pain M4 PT-IP Mobility and Gait Start: 08/12/22 16:26 Freq: NEEDED Status: Active Protocol: Document 08/12/22 15:10 AB (Rec: 08/12/22 16:42 AB [id number]) PT-Bed Mobility Assessment Supine to Sit Supine to Sit Maximum Assistance Sit to Supine Sit to Supine Standby Assistance PT-Transfer Assessment Sit to and From Stand Sit to and from Stand Contact Guard Assistance,1 Person Assistance,Use of Upper Extremities Equipment Transfer Assistive Device None,Gait Belt Orthotic/Prosthetic Devices or Brace: No Comments Mobility Comments pt in room with spouse. O2 sat with 2L/min O2: 96%. RA at rest: 95-96%. educated pt and spouse regarding pt's shoulder precautions. pt completed supine to sit max a and max cues with HOB elevated . pt plans to sleep in his recliner at home. (+) SOB and O2 sat decreased to 85%. put O2 back on and O2 sat increased to 90-93%. assisted pt with sling adjustment. educated on elbow/hand/wrist exercises PROM at this time due to pt's motor control on RUE is not back yet due to nerve block. educated spouse on sling management and PT demonstrated . spouse was able to assist pt with sling. pt completed sit to stand CGA and ambulated in room without AD SBA to CGA . presents with waddling gait . pt went back to bed. SBA to sit to supine. positioned pt in bed. call light and table placed within reach. pt and spouse without questions at this time. Gait Assessment Gait Gait Assistance Required: Standby Assistance,Contact Guard Assist,1 Person Assist Distance (Feet) 20 Able to Maintain Weight Bearing Status Yes During Gait Assistive Devices Assistive Device None Orthotic/Prosthetic Devices or Brace: Yes Gait Deviations General Gait Pattern Decreased Stride Length, Decreased Feet Clearance,Wide Based Gait Factors Limiting Gait Function Factors Limiting Gait Function Decreased Activity Tolerance, Decreased Sensation,Decreased Strength,Limited Range of Motion,Poor Balance, Respiratory Distress PT-Balance Assessment Sitting Balance and Reactions Static Sitting Balance Ability Good Dynamic Sitting Balance Ability Good Standing Balance and Reactions Static Standing Balance Ability Good Dynamic Standing Balance Ability Fair Device Used without AD M5 PT-IP Objective Assessments Start: 08/12/22 16:26 Freq: NEEDED Status: Active Protocol: Document 08/12/22 15:10 AB (Rec: 08/12/22 16:42 AB [id number]) Orientation Orientation/Cognition Level of Alertness Alert Orientation Name,Place,Situation Language Function Ability No Deficits Noted Safety Awareness Decreased Safety Awareness Memory Description Short Term Impaired Gross Range of Motion Lower Extremity ROM Assessment Within Functional Limits Strength Lower Extremity Strength Assessment Within Functional Limits Sensation Assessment Sensation Gross Sensation Right UE Impaired Sensation Description Numbness Muscle Tone Comments Muscle Tone Comments RUE motor control not returned yet due to nerve block M6 PT-IP Treatment Start: 08/12/22 16:26 Freq: NEEDED Status: Active Protocol: Document 08/12/22 15:10 AB (Rec: 08/12/22 16:42 AB [id number]) Physical Therapy Treatment Exercises Exercises Elbow Flexion/Extension,Wrist ROM,Hand ROM Education Education Provided Precautions,Weight Bearing Status,Post-Op Packet,Safety Brace Education [place],Patient, Caregiver M7 PT-IP Assessment and Plan Start: 08/12/22 16:26 Freq: NEEDED Status: Active Protocol: Document 08/12/22 15:10 AB (Rec: 08/12/22 16:42 AB [id number]) PT Summary Assessment and Plan Potential Rehabilitation Potential Fair Status of Condition at Evaluation Evolving Summary Impairments Pain,ROM,Strength,Balance, Coordination,Sensation,Tone, Cognition,Bed Mobility, Transfers,Gait,Activity Tolerance Assessment Summary pt requiring SBA to CGA with transfers and ambulation without AD. Max A for bed mobility but pt plans to sleep on his recliner at home at this time. caregiver training initiated and spouse was able to assist pt with sling management. will continue to assess progress. Goals Transfer Goal Independent Gait Goal Independent Gait Distance 150 Days to Meet Goals 5 Frequency of Treatment Frequency Of Treatment Twice a Day Treatment Plan Physical Therapy Treatment Plan Bed Mobility Training,Transfer Training,Gait Training, Therapeutic Exercise,Balance Retraining,Post Op Education, Discharge Planning,Hot or Cold Pack,Neuromuscular Re-ed, Coordination Retraining,Manual Therapy Precautions Shoulder Precautions Sling,PROM,Internal Rotation to Body,No External Rotation, No Abduction,Forward Flexion to 90 degrees,Pendulums Weight Bearing Status Weight Bearing Status Non-Weight Bearing Allowed Weight Bearing Amount (enter % RUE NWB or #) (%) Recommendations To Nursing Amount of Assist Needed 1 Person Assist Discharge Recommendations PT Discharge Recommendations Home with Assistance, Outpatient PT Transportation Needs at Discharge Private Vehicle
[2022-08-12] MEDS: ACETAMINOPHEN 325 MG TABLET 650 MG PO ×2 (17:05→23:07)
[2022-08-12] MEDS: CEFAZOLIN 3 GM IN 0.9 % NACL 3 GM/100 ML PLAST..BAG IV (17:42)
[2022-08-12] MEDS: LOSARTAN 50 MG TABLET PO (20:32)
[2022-08-12] MEDS: DOCUSATE 100 MG CAPSULE PO (20:33)
[2022-08-12] MEDS: ASPIRIN EC 81 MG TABLET PO (20:33)
[2022-08-13] MEDS: CEFAZOLIN 3 GM IN 0.9 % NACL 3 GM/100 ML PLAST..BAG IV (01:36)
[2022-08-13] MEDS: IBUPROFEN 400 MG TABLET PO ×3 (01:36→08:27)
[2022-08-13 03:00] VITALS: BP 103/51; PULSE 79; RESP 21; TEMP 36.1; O2SAT 94
[2022-08-13] MEDS: ACETAMINOPHEN 325 MG TABLET 650 MG PO ×2 (05:40→11:36)
[2022-08-13] MEDS: OXYCODONE IR 10 MG TABLET PO (06:49)
[2022-08-13 07:06] LABS: Hematocrit 33.1 % (41-53); Hemoglobin 11.4 g/dL (13.5-17.5)
--- NOTE | 2022-08-13 08:18 | PM.DS.1 ---
History of Present Illness History of Present Illness Date Patient Seen: 08/13/22 Time Patient Seen: 08:18 Chief complaint: Right TSA Narrative: Operative Date/Time/Diagnoses Date of procedure: 08/12/22 Time of procedure: 12:18 Pre-op diagnosis: Right shoulder osteoarthritis Post-op diagnosis: same Procedure & Clinicians Procedure: Right total shoulder replacement Same procedure as scheduled: Yes Indications: The patient has had progressively worsening right shoulder pain with radiographic changes consistent with arthritis. Non-operative management has failed and the patient has requested total shoulder replacement. The risks, benefits and alternatives to surgery were discussed with the patient prior to proceeding. Risks discussed included, but were not limited to, failure to relieve pain, stiffness, infection, nerve damage, deep venous thrombosis, pulmonary embolism, stroke, coma, heart attack, permanent paralysis and , as well as the potential need for eventual revision of the prosthetic. Surgeon: Roberto Merrill Concrete Pipe Plant Supervisor: Lucas Cisneros Click Yes if Unassisted: No Anesthesia Type: General, Peripheral nerve block and Local Operative Notes Findings: Severe osteoarthritis of the right shoulder. Closure Type: primary Specimen(s): none sent Prosthetic devices, grafts, tissues, transplants, or devices: Prosthetics used in this procedure were manufactured by the [employer] and included a canal sparing size 2 stem, a 50 x 18 mm neutral humeral head and an all polyethylene E+ 50 mm pegged glenoid Applied: implant(s) Estimated Blood Loss (mL): 150 Blood products transfused: none Discharge Providers Provider Date of admission: 08/12/22 07:57 Discharge Date: 08/13/22 Primary care physician: Raza Valdes MD Consults: 08/12/22 13:35 Consult to Discharge Planning Routine Comment: Consult to Physical Therapy Evaluate & Treat Comment: Physician Instructions: pendulums, PROM 90 FF, 0 ER, 0 Abd, IR to body Discharge provider: Liza Hager PA-C Summary Hospital Course Discharge Diagnosis: Right shoulder osteoarthritis, s/p right total shoulder arthroplasty Hospital Course: Mr Obando's hospital course was unremarkable. On POD# 1 he was feeling well and wanted to go home. He was eating and voiding without difficulty and his pain was well-controlled with oral medication. He was evaluated by PT and felt to be safe for homegoing. 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 Sensation to light touch intact throughout RUE. Aquacel dressing CDI. 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 Discharge Plan Discharge Plan Patient Disposition: Home Discharge orders & Medications Prescriptions: New oxycodone 5 mg Tablet 5 mg PO Q4H PRN (Reason: pain, severe) Qty: 60 0RF acetaminophen 325 mg Tablet 650 mg PO Q6HR PRN (Reason: fever or pain) Qty: 240 0RF docusate sodium 100 mg Capsule 100 mg PO BID PRN (Reason: constipation) Qty: 60 1RF ibuprofen 400 mg Tablet 400 mg PO Q4HR Qty: 120 0RF aspirin 81 mg Tablet,Delayed Release (Dr/Ec) 81 mg PO BID Qty: 30 0RF Continued losartan 50 mg Tablet 50 mg PO BEDTIME hydrochlorothiazide 25 mg Tablet 25 mg PO DAILY multivitamin Capsule 1 cap PO DAILY propranolol 120 mg Capsule,Extended Release 24 Hr 120 mg PO QAM Follow up/Referrals: Raza Valdes MD [Primary Care Provider] - Roberto eMrrill MD [Physician] - As previously scheduled (Follow up w/ Ayaka Eubanks PA-C, on 08/21/2022 @ 3:20 pm at [facility] in [place].) Diet/Activity/Treatments Diet: Diet as Tolerated Activity: Sling at most times. May have off for pendulum exercises and to shower. You may use your arm in front of your body below shoulder level to lift 1-2 lb. Start PT 10-14 days after surgery. Cold/Heat Therapy: Ice to shoulder as needed for pain. Skin/Wound/Dressing Care Report to your healthcare provider any signs of infection, such as:: chills, fever, night sweats, unusual drainage and unusual redness Dressing: May shower. Leave Aquacel dressing in place until follow up visit in office. No bathing or otherwise soaking incision. Call the office if the dressing becomes saturated inside. Visit Report/Discharge Packet Instructions: DI for Prescription Opioid Use, DI for Shoulder Replacement Stand Alone Forms: Patient Portal/API, Stroke Signs & Symptoms, Surgery Discharge Discharge Data Primary Care Provider: Raza Valdes
[2022-08-13] MEDS: DOCUSATE 100 MG CAPSULE PO (08:27)
[2022-08-13] MEDS: ASPIRIN EC 81 MG TABLET PO (08:27)
[2022-08-13] MEDS: MULTIVITAMIN 1 TABLET 1 TAB PO (08:27)
[2022-08-13 09:00] VITALS: BP 105/48; PULSE 78; RESP 17; TEMP 36.3; O2SAT 95
[2022-08-13 11:00] VITALS: BP 109/56; PULSE 78; RESP 17; TEMP 36.3; O2SAT 94
--- NOTE | 2022-08-13 11:09 | PT.IPTN ---
Current Diagnoses Primary osteoarthritis, right shoulder (08/12/22) Presence of unspecified artificial shoulder joint (08/12/22) Surgery Performed Operation Date: 08/12/22 10:00 Actual Procedures p Total Shoulder Arthroplasty(Right) - Roberto Merrill MD Physical Therapy Treatment Note M2 PT-IP Current Condition Start: 08/12/22 16:26 Freq: NEEDED Status: Active Protocol: Document 08/13/22 10:32 DCW (Rec: 08/13/22 11:08 DC [id number]) Physical Therapy Current Condition Current Condition Evaluation Date 08/12/22 Treatment Diagnosis s/p R TSA; difficulty in walking Onset Date 08/12/22 M3 PT-IP Subjective Start: 08/12/22 16:26 Freq: NEEDED Status: Active Protocol: Document 08/13/22 10:32 DCW (Rec: 08/13/22 11:08 DCW [id number]) Subjective Physical Therapy Visit Type Type Treatment Note Visit Start Time 10:32 Visit Stop Time 10:53 Total Visit Minutes 21 Number of GROUP HOME WORKER Visits 0 Physical Therapy Visit Comments Patient Comments Pt feeling good today, pain 2- 3/10 Therapy Pain Assessment Pain Present Pain Present Pain Reported Location Right shoulder Intensity 3 Scale Used Numeric (0 - 10) M4 PT-IP Mobility and Gait Start: 08/12/22 16:26 Freq: NEEDED Status: Active Protocol: Document 08/13/22 10:32 DCW (Rec: 08/13/22 11:08 DCW [id number]) PT-Bed Mobility Assessment Supine to Sit Supine to Sit Minimal Assistance PT-Transfer Assessment Sit to and From Stand Sit to and from Stand Standby Assistance,1 Person Assistance Comments Mobility Comments Pt struggled a little getting out of hospital bed due to inability to assist with right arm, however once on EOB, was fully independent with mobility. Gait Assessment Gait Gait Assistance Required: Standby Assistance Distance (Feet) 200 Able to Maintain Weight Bearing Status Yes During Gait Assistive Devices Assistive Device None Gait Deviations General Gait Pattern Decreased Stride Length, Decreased Feet Clearance,Wide Based Gait Factors Limiting Gait Function Factors Limiting Gait Function Decreased Activity Tolerance, Decreased Sensation,Decreased Strength,Limited Range of Motion,Poor Balance, Respiratory Distress M5 PT-IP Objective Assessments Start: 08/12/22 16:26 Freq: NEEDED Status: Active Protocol: Document 08/12/22 15:10 AB (Rec: 08/12/22 16:42 AB [id number]) Orientation Orientation/Cognition Level of Alertness Alert Orientation Name,Place,Situation Language Function Ability No Deficits Noted Safety Awareness Decreased Safety Awareness Memory Description Short Term Impaired Gross Range of Motion Lower Extremity ROM Assessment Within Functional Limits Strength Lower Extremity Strength Assessment Within Functional Limits Sensation Assessment Sensation Gross Sensation Right UE Impaired Sensation Description Numbness Muscle Tone Comments Muscle Tone Comments RUE motor control not returned yet due to nerve block M6 PT-IP Treatment Start: 08/12/22 16: Freq: NEEDED Status: Active Protocol: Document 08/13/22 10:32 DCW (Rec: 08/13/22 11:08 [facility] [id number]) Physical Therapy Treatment Other Treatments Other Treatment Performed Readjusted sling, reviewed importance of following shoulder precautions, reviewed pendulums M7 PT-IP Assessment and Plan Start: 08/12/22 16: Freq: NEEDED Status: Active Protocol: Document 08/13/22 10:32 DCW (Rec: 08/13/22 11:08 DC [id number]) PT Summary Assessment and Plan Summary Impairments Pain,ROM,Strength,Balance, Coordination,Sensation,Tone, Cognition,Bed Mobility, Transfers,Gait,Activity Tolerance Assessment Summary Pt moving better today, able to tolerate full lap around nursing station with no pain or distress, did not exhibit any signs of fatigue or difficulty. Pt confirms good understanding of sling use, shoulder precautions, and pendulums. Pt preferred to sit in recliner at end of session , as the bed is difficult for him to get out of with only one arm assistance. Pt left with call light within reach, in the room. Will likely be discharging later today. Goals Transfer Goal Independent Gait Goal Independent Gait Distance 150 Days to Meet Goals 5 Frequency of Treatment Frequency Of Treatment Twice a Day Treatment Plan Physical Therapy Treatment Plan Bed Mobility Training,Transfer Training,Gait Training, Therapeutic Exercise,Balance Retraining,Post Op Education, Discharge Planning,Hot or Cold Pack,Neuromuscular Re-ed, Coordination Retraining,Manual Therapy Precautions Shoulder Precautions Sling,PROM,Internal Rotation to Body,No External Rotation, No Abduction,Forward Flexion to 90 degrees,Pendulums Weight Bearing Status Allowed Weight Bearing Amount (enter % RUE NWB or #) (%) Discharge Recommendations PT Discharge Recommendations Home with Assistance, Outpatient PT Transportation Needs at Discharge Private Vehicle
[2022-08-13] MEDS: OXYCODONE IR 5 MG TABLET PO (11:37)
--- NOTE | 2022-08-13 12:48 | PC.NURSE ---
Pt discharged home by private vehicle at 1240, escorted off floor in wheelchair, accompanied by spouse and hospital staff. Discharge teaching completed including follow up appointments, new medication regimen, shoulder precautions and worsening symptoms. Questions and concerns addressed. All belongings left floor with patient.
--- NOTE | 2022-08-13 17:40 | CM.DANOTE ---
DCP: Assessment: 71 yo male admitted under orthopedic care via pov and underwent Right total shoulder replacement on 08/12/22. Pt has hx of Right shoulder osteoarthritis. This CM met with pt in his room. Introduced self and role. Pt's was present. Pt a+ox4. He confirms that he resides in [place] with his , he drives and he does not use dme. PCP: Rafat [facility] Health Insurance: [employer] Medicare Advantage Plan: Home with today, outpatient physical therapy is set up at [facility] in [place]. Myrna Galaviz RN Case Manager Discharge Planning/Care Management Advanced directive, confirm from FAMILY Start: 08/12/22 13:50 Freq: Q24H Status: Discharge Protocol: Document 08/12/22 14:27 DAISY (Rec: 08/12/22 14:29 DAISY [id number]) Advance Directive, confirm on record Time 14:29 Person contacted Patient's spouse Copy received No CM Discharge Assessment Start: 08/13/22 17:36 Freq: Status: Discharge Protocol: Document 08/13/22 12:00 JS (Rec: 08/13/22 17:38 JS [id number]) Discharge Planning Assessment Assigned Glass Inserter Myrna Galaviz RN Case Manager Advance Directives? Yes Advance Directives on File No History Provided By Patient,Significant Other Has Patient been admitted in last 30 No days? Prior Living Arrangements House Household Members spouse Type of transporation used prior to Drives own vehicle admit Independent with ADL's Yes Is patient alert and oriented? Yes Caregiver for Another No Barriers to Discharge No Discharge Plan Home Transportation Arrangement Spouse to provide transport. Referrals Initiated None needed Whiteboard Updated in Patient Room with Yes name and ext. # of Glass Inserter Review Status In Process Next Review Type Continued Stay Review Pre-Anesthesia Assessment Start: 07/31/22 10:00 Freq: Status: Complete Protocol: Document 07/31/22 10:00 CAB (Rec: 07/31/22 10:19 CAB [id number]) Pre-Anesthesia Assessment Preferred Name Christian Comment Labs/ECG done per pt, not here , COVID screen-needs to schedule Primary Care Provider Unknown Comment Pt recently switched to a new PCP, uncertain of name Seen Specialist in Last 12 Months Yes Specialist Seen Orthopedist,Other Comment Neurology-tremors Primary Language Malagasy Preferred Language [facility] Representative Required No Height 170.18 cm Weight 134.717 kg Body Mass Index (BMI) 46.5 Hearing Ability Normal Visual Assist Glasses Hx Anesthesia Reactions No Hx Family Anesthesia Reaction No Hx Malignant Hyperthermia No Hx Blood Transfusions No Hx Blood Transfusion Reaction No Anesthesia Review Requested No Undertaker Assistant No alcohol intake never Smoking Status Never smoker Substance Use Type does not use Pain Present Pain Reported Musculoskeletal Symptoms Abnormal Gait,Joint Pain, Limited Range of Motion History of Falling (Recent or History of No ) Patient is completely paralyzed or No completely immobile Mental Status Oriented to own ability Is patient on oxygen? No Does patient have RODRÍGUEZ/SOB No Hx Sleep Apnea Yes CPAP/BIPAP use prescribed and used routinely Will Bring CPAP/BIPAP DOS Yes Currently Taking a Beta Rere Yes: Propranolol for tremors Can You Climb a Flight of Stairs Without Yes SOB Hx Chest Pain No Hx SOB No Hx Syncope or Dizziness No Anti-Coagulant Therapy No Has a Shop Girl No Cardiac Testing No Hx Pacemaker/ICD No Pacemaker Rep Required? No Diet Type At Home Regular Dysphagia No Urinary Catheter Present No Hx Urinary Self Catheterization No Diabetes No: Pre-diabetic Hx Drug Resistant Organism No Presence of External or Internal Medical Yes: CPAP, left shoulder Devices prosthesis Have you had any close contact with No someone diagnosed with COVID-19? Received a COVID vaccine? No Marital Status Lives With spouse,family Current Living Arrangements House Number of Floors (Floors) One Floor Support System Family,Spouse Does the Patient Have Assistance After Yes Surgery Patient Discharge Plan Description Return Home Comment Pt advised possible same day surgery per surgeon office Feels Safe in Current Environment Yes Been Physically Hurt or Threatened By a No Person in Current Environment Do you have thoughts of harming yourself None or others? Are you currently considering suicide? No Do you have a plan to hurt yourself or No Plan others? Do You Have Any Spiritual Beliefs That No May Affect Your HC Choices? Do You Have Any Cultural Practices That No May Affect Your HC Choices? Comment Buddhist Who Can We Speak to About Patient's Care Family, friends Identifying Code for Release of Patient Declines to issue Information Health Care Proxy/Next of Kin Margarita Chavez () Health Care Proxy Emergency Contact Name Margarita Chavez () Emergency Contact Advance Directives? Yes Advance Directives on File No Requested Patient Bring Advanced Yes Directives DOS Power of Interactive Media Marketing Specialist Yes Power of Interactive Media Marketing Specialist Name Margarita Chavez () Power of Interactive Media Marketing Specialist PAC Instructions Bring CPAP/BIPAP,Medications to take/avoid,Nasal antibiotic ,No ETOH/petroleum product on skin DOS,NPO,Post-op transportation,Pre-surgical wash,Sensory aids,Sturdy shoes /comfortable clothes,Do not bring valuables and remove jewelry Stop Bang Assessment Is your BMI more than 35 kg/m2 Yes Age over 50 Yes Estimated neck circumference greater Yes than 40cm or 16in Gender male Yes Result Positive
== END 2022-08-13 12:51 | disposition home or self-care (01) | DRG 483 ==
PROVIDERS: Admitting Provider Orthopaedic Surgery; PCP Family Medicine; Referring Provider Orthopaedic Surgery; Visit Provider Orthopaedic Surgery
PROC: 0RQJ0ZZ Repair Right Shoulder Joint, Open Approach (ICD-10-PCS; CPT 23472; principal; 2022-08-12 10:00)
DX: M19.011 Primary osteoarthritis, right shoulder (principal); I10 Essential (primary) hypertension; Z20.822 Contact with and (suspected) exposure to COVID-19
CPT/HCPCS: 36415; 64450; 73030; 85014; 85018; 87635; 97162; 97530; C1776; C9803; J0690; J1100; J2250; J2405; J2704; J3010